=== PATIENT | male | born 1955 | race Caucasian/White ===

== ENCOUNTER 2018-09-03 14:08 | Emergency (ER) | payer OTHER, MEDICAID ==
[2018-09-03] MEDS: DIPHENHYDRAMINE 50 MG CAP PO (15:29)
[2018-09-03] MEDS ORDERED: DEXAMETHASONE 10 MG/ML 1 ML INJ IM (15:30)
[2018-09-03] MEDS: DEXAMETHASONE 4 MG/ML 1 ML INJ IM (15:32)
== END 2018-09-03 15:54 | disposition home or self-care (01) ==
LOC: FTE 14:08
DX: L50.9 Urticaria, unspecified (principal); R40.2412 Glasgow coma scale score 13-15, at arrival to emergency department
CPT/HCPCS: 96372; 99284-25